=== PATIENT | female | born 1970 ===

== ENCOUNTER 2024-04-21 14:59 | Emergency (ER) | payer OTHER, SELFPAY ==
[2024-04-21] VITALS (8 sets, daily range): BP systolic 91–109; BP diastolic 51–63; PULSE 89–109; RESP 18–20; TEMP 37.3–39.5; O2SAT 93–98; BMI 26.4
--- NOTE | ~2024-04-21 | US_ITS ---
EXAMINATION: US ABDOMEN LIMITED CLINICAL INFORMATION: Pericholecystic fluid on CT. COMPARISON: CT abdomen pelvis 04/21/2024. TECHNIQUE: Real-time imaging of the right upper quadrant abdominal viscera. FINDINGS: Gallbladder: The gallbladder is partially contracted. A single 1.5 cm x 0.67 x 1.1 cm echogenic gallstone is identified in the gallbladder lumen with posterior acoustic shadowing. Gallbladder wall thickness measures 3 mm in width. No pericholecystic fluid collections identified. A negative sonographic Kim sign is reported by the certified surgical technologist. The common bile duct measures 4 mm diameter. Incidentally visualized liver demonstrates no gross intrahepatic biliary duct dilatation. The liver is not comprehensively evaluated. US/US abdomen limited IMPRESSION: *Cholelithiasis. Single 1.5 cm gallstone identified within the lumen of the gallbladder. The gallbladder is contracted. No pericholecystic fluid collections. No inflammatory changes or abnormal mural thickening of the gallbladder identified. *Normal caliber of the common bile duct. Electronically signed by: Spencer St MD 04/21/2024 11:24 PM [facility]
--- NOTE | ~2024-04-21 | CT_ITS ---
EXAMINATION: CT ABDOMEN AND PELVIS WITH CONTRAST CLINICAL INFORMATION: Right flank pain COMPARISON: None available. TECHNIQUE: Multidetector volumetric images were obtained from the superior aspect of the liver through the pubic symphysis following administration 85 mL of Omnipaque 350 intravenous contrast. Sagittal and coronal reformatted images were obtained on the technologist's workstation. Oral contrast: No This CT examination was performed using dose optimization techniques as appropriate, variously including the following: *Automated exposure control *Adjustment of mA and/or kV according to patient size (this includes techniques or standardized protocols for targeted exams where dose is matched to indication/reason for exam; i.e. extremities or head) *Use of iterative reconstruction technique DLP: 421 mGy-cm FINDINGS: LUNG BASES: Right lower lobe consolidation with surrounding groundglass opacity concerning for inflammation/infection. ABDOMINAL AND PELVIC WALL: Unremarkable. LIVER AND BILIARY TREE: Multiple subcentimeter hypoattenuating liver lesions are too small to characterize. GALLBLADDER: The gallbladder is contracted with mild pericholecystic fluid. No gallstones. PANCREAS: Unremarkable. SPLEEN: Unremarkable. ADRENAL GLANDS: Unremarkable. KIDNEYS AND URETERS: Benign-appearing right renal cyst. Punctate right renal stones, no obstructing stone or hydronephrosis. GASTROINTESTINAL TRACT: Unremarkable. Appendix is within normal limits. VASCULAR: Unremarkable LYMPH NODES/PERITONEUM: No lymphadenopathy. FREE FLUID: None. BLADDER: Unremarkable. PELVIC VISCERA: Intrauterine device is seen within the uterus. OSSEOUS STRUCTURES: Unremarkable. CT/CT abdomen pelvis w IV con IMPRESSION: * Right lower lobe consolidation with surrounding groundglass opacity concerning for inflammation/infection. * Gallbladder is contracted with mild pericholecystic fluid. No gallstones. Recommend right upper quadrant ultrasound for further evaluation. * Punctate right renal stones, no obstructing stone or hydronephrosis. Electronically signed by: Mindy Ye MD 04/21/2024 06:10 PM [facility]
--- NOTE | ~2024-04-21 | XR_ITS ---
EXAMINATION: XR CHEST CLINICAL INFORMATION: Sepsis COMPARISON: None available. TECHNIQUE: 2 views of the chest were obtained. FINDINGS: The cardiac silhouette is normal. There is mild diffuse bronchial wall thickening. There are no areas of consolidation. There are no pleural effusions or pneumothoraces. The bones and soft tissues are unremarkable for the patient's age. XR/XR chest 2V IMPRESSION: Bronchial wall thickening may be infectious and/or inflammatory in etiology. Electronically signed by: Moon Ochoa MD 04/21/2024 04:58 PM EST RP
--- NOTE | 2024-04-21 15:17 | ED_ITS ---
HPI - Fever General Chief Complaint: Fever Stated Complaint: fever-covid+ Time Seen by Provider: 04/21/24 15:52 Source: patient Mode of arrival: ambulatory Limitations: no limitations History of Present Illness HPI Narrative: This is an otherwise healthy 53-year-old woman with a past medical history of bunionectomy who presents for evaluation of fever. The patient states that she returned from a cruise to the [facility] on Thursday April 11, 2024. She states that she began to feel generally unwell the following day. She reports associated headache, fever as high as 101? F and myalgias. She states no associated nausea, vomiting and diarrhea. She states that her symptoms continued and would not resolving. She reports that she was seen had an urgent care and was diagnosed with COVID-19 on Wednesday April 17, 2024. She states that she was also found to have a urinary tract infection. She reports noting increased urinary frequency/urgency without dysuria. She states mild flank pain as well. She states no trauma. She states no abdominal pain. She states no cough, chest pain or difficulty breathing. Related Data Previous Rx's ?Medication ?Instructions ?Recorded cefpodoxime 200 mg tablet 200 mg PO BID 7 days #14 tabs 04/21/24 doxycycline hyclate 100 mg capsule 100 mg PO BID 7 days #14 caps 04/21/24 Allergies Allergy/AdvReac Type Severity Reaction Status Date / Time No Known Allergies Allergy Verified 04/21/24 15:19 Review of Systems 2 Review of Systems: ROS as per [facility] Social History Social History Alcohol intake: former Smoked in Last 30 Days: No Use of substances other than those prescribed or required for medical reasons: No Advance Directives: No Advance Directives Information Provided: No Physical Exam 2 Vital Signs: Vital Signs: Last Vital Signs Temp 99.2 F 04/22/24 00:17 Pulse 83 04/22/24 00:17 Resp 16 04/22/24 00:17 BP 92/57 L 04/22/24 00:17 Pulse Ox 96 04/22/24 00:17 O2 Del Method Room Air 04/22/24 00:17 BMI result Body Mass Index 26.4 Gen: NAD, AOx3 HEENT: NCAT, EOMI, normal conjunctiva CV: Tachycardic rate, regular rhythm Pulm: CTAB, no increased work of breathing GI: Soft, NTND, no rebound, guarding or rigidity Neuro: Grossly non focal Course Course Course Narrative: This is a Rapid Medical Examination (RME) performed by Ismael Auguste PA-C in triage. Full HPI, ROS, assessment and treatment plan per primary provider in the Main ED. 53 yo female here for eval of fevers not responsive to tylenol and motrin. seen for this at in [facility] - diagnosed with covid. she was also prescribed bactrim for UTI which she is taking as prescribed. reports continued dark colored urine, mild right flank pain, and fevers >103F. + febrile and tachy w/ known infection - meets sepsis criteria. patient brought back to main ED bed. Plan: labs, lactic, UA, blood cultures. tylenol given. Medications Administered Discontinued Medications Generic Name Dose Route Start Last Admin Trade Name Freq PRN Reason Stop Dose Admin Acetaminophen 975 mg 04/21/24 15:19 04/21/24 15:22 Acetaminophen 325 Mg Tablet PO 04/21/24 15:20 975 mg ONCE ONE Administration Ceftriaxone Sodium 1 gm 04/21/24 15:54 04/21/24 16:06 Ceftriaxone Sodium 1 Gm Vial IVPUSH 04/21/24 15:55 1 gm ONCE ONE Administration Lactated Ringer's 1,905.09 mls @ 1,905.09 mls/hr 04/21/24 15:52 04/21/24 16:52 Lr 30 ml/kg infuse over 1 hr (1905.09 ml) 04/21/24 16:51 Infused IV Infusion .Q1H ONE Doxycycline Hyclate 100 mg/ 250 mls @ 166.67 mls/hr 04/21/24 18:27 04/21/24 20:13 Sodium Chloride IV 04/21/24 19:56 Infused ONCE ONE Infusion Sodium Chloride 500 mls @ 999 mls/hr 04/21/24 18:45 04/21/24 19:25 Ns IV 04/21/24 19:15 Infused .Q31M PRABHA Infusion Ibuprofen 600 mg 04/21/24 19:44 04/21/24 19:58 Ibuprofen 600 Mg Tablet PO 04/21/24 19:45 600 mg ONCE ONE Administration Iohexol 100 ml 04/21/24 17:03 04/21/24 17:03 Iohexol 350 Mg/Ml 100 Ml Infus..Btl IV 04/21/24 17:04 85 ml ONCE ONE Administration Medical Decision Making Medical Decision Making [facility] Narrative: I received sign-out from my colleague Dr. Ureña -patient's ultrasound shows a 1.5 cm gallstone, no acute cholecystitis. Patient does not have significant abdominal pain at this time. Discussed with the patient to have a follow-up with general surgery, if the patient starts causing symptoms, she may need a cholecystectomy. At this time, patient has no symptoms related to the gallstone -CT scan of the abdomen showed right lower lobe consolidation, likely pneumonia. Patient will be going home with antibiotics. Patient known to be COVID 19 positive Patient's oxygen saturation constantly 96% on room air even with exertion. Admission/Observation Consideration of admission/observation: Escalation of care including admission/observation considered Lab Data [facility] Lab Attestation statement: I reviewed the patient's lab results. 04/21/24 15:37 04/21/24 15:37 Labs: Lab Results 04/21/24 04/21/24 04/21/24 Range/Units 15:36 15:37 16:26 WBC 9.5 (4.8-10.8) X10*3/uL RBC 3.31 L (4.20-5.50) X10*6/uL Hgb 10.1 L (12.0-16.0) g/dl Hct 29.3 L (37.0-47.0) % MCV 88.5 (80.0-98.0) fL MCH 30.5 (27.0-33.0) pg MCHC 34.5 (31.0-35.0) g/dl RDW 12.8 (11.0-16.0) % Plt Count 275 (160-400) X10*3/uL MPV 10.7 (9.4-12.3) fL Immature Gran % (Auto) 1.1 H (0.0-0.4) % Neut % (Auto) 74.7 H (45-73) % Lymph % (Auto) 16.1 L (20-40) % [place] % (Auto) 7.7 (2-11) % Eos % (Auto) 0.0 (0-4) % Baso % (Auto) 0.4 (0-2) % Lymph # (Auto) 1.5 (1.2-4.9) X10*3/uL [place] # (Auto) 0.7 (0.1-1.2) X10*3/uL Eos # (Auto) 0.0 (0.0-0.4) X10*3/uL Baso # (Auto) 0.0 (0.0-0.2) X10*3/uL Abs Immat Gran (auto) 0.10 H (0.00-0.03) X10*3/uL Absolute Neuts (auto) 7.1 (2.0-8.3) x10*3/uL Absolute Nucleated RBC 0.000 (0.0-0.012) X10*3/uL Nucleated RBC % (auto) 0.0 (0.0-0.2) /100WBC PT 14.5 H (10.9-12.4) SEC INR 1.2 H (0.9-1.1) APTT 26.7 (26.0-36.8) SEC Sodium 133 L (135-145) mmol/L Potassium 3.8 (3.3-5.1) mmol/L Chloride 98 (96-108) mmol/L Carbon Dioxide 23 (22-29) mmol/L Anion Gap 16 (12-20) BUN 12 (9-16) mg/dL Creatinine 0.99 (0.5-1.4) mg/dL Estim Creat Clear Calc 56.1 Estimated GFR 59 Random Glucose 104 (60-115) mg/dL Lactic Acid 1.1 (0.5-2.0) mmol/L Calcium 9.1 (8.4-10.2) mg/dL Magnesium 2.0 (1.6-2.6) mg/dL Total Bilirubin 2.0 H (0.0-1.0) mg/dL AST 45 H (5-31) U/L ALT 21 (0-31) U/L Alkaline Phosphatase 90 (39-117) U/L Total Protein 8.5 H (6.5-8.0) g/dL Albumin 3.8 (3.5-5.0) g/dL Lipase 104 H (8-78) U/L Urine Color Dark Yellow Urine Appearance Clear Urine pH 6.0 (5.0-9.0) Ur Specific [place] 1.015 (1.005-1.025) Urine Protein 100 (2+) H (Neg-Trace) mg/dL Urine Glucose (UA) Negative (Negative) mg/dL Urine Ketones Negative (Negative) mg/dL Urine Blood Trace H (Negative) Urine Nitrite Negative (Negative) Ur Leukocyte Esterase Trace H (Negative) Urine RBC 6-10 H (0-2) /HPF Urine WBC 6-10 H (0-5) /HPF Ur Squamous Epith Cells 0-2 (0-2) /HPF Urine Bacteria None Seen (None Seen) Hyaline Casts 0-2 (0-2) /LPF Independent Interpretation I performed an independent interpretation of an: EKG Interpretation: I independently reviewed and interpreted the patient's EKG and chest x-ray. EKG demonstrates sinus rhythm at 92 beats per minute, [place] 138, QRS 90, QTC 457, no STEMI. Radiology Impression Discussion of test interpretation with radiology: I have reviewed the radiologist's reading. Radiologist Impression: Gallbladder: The gallbladder is partially contracted. A single 1.5 cm x 0.67 x 1.1 cm echogenic gallstone is identified in the gallbladder lumen with posterior acoustic shadowing. Gallbladder wall thickness measures 3 mm in width. No pericholecystic fluid collections identified. A negative sonographic Kim sign is reported by the cytogenetics technologist. The common bile duct measures 4 mm diameter. Incidentally visualized liver demonstrates no gross intrahepatic biliary duct dilatation. The liver is not comprehensively evaluated. Critical Care Time Critical Care Time Critical Care Time: Yes Total Critical Care Time: 60 Attestation: I have personally provided critical care time. Time includes review of lab data, radiology results, discussion with consultants, and monitoring for potential decompensation. Intervention performed as documented. Discharge Plan Discharge Clinical Impression: Pneumonia Patient Disposition: Home, Self-Care Additional Instructions: You were seen and evaluated in the emergency room. You are found to have pneumonia and started on antibiotics. Please discontinue ear previous antibiotic prescription. You are given a prescription for two new antibiotics. Please take at the same time twice a day. Your next dose of antibiotics she will be taken in the morning of April 22, 2024. Please take 600 mg of ibuprofen with food and water every 6 hours as needed for pain/fever. You can also take 1000 mg Tylenol every 8 hours as needed for additional pain/fever relief. Please follow-up with your primary care doctor in the next 1 week. Return to the emergency room with any new concerns. Prescriptions: New cefpodoxime 200 mg tablet 200 mg PO BID 7 Days Qty: 14 0RF Rx Instructions: must administer with a meal/food doxycycline hyclate 100 mg capsule 100 mg PO BID 7 Days Qty: 14 0RF Print Language: Faroese
[2024-04-21] MEDS: Acetaminophen 325 MG TABLET 975 MG PO (15:22)
[2024-04-21 15:42] LABS: MANUAL DIFF FLAG NO
[2024-04-21 15:43] LABS: Basophils Percent Auto 0.4 % (0-2); Hematocrit 29.3 % (37.0-47.0); Hemoglobin 10.1 g/dl (12.0-16.0); Imm Gran Pct Auto 1.1 % (0.0-0.4); Lymphocytes Absolute Auto 1.5 X10*3/uL (1.2-4.9); Lymphocytes Percent Auto 16.1 % (20-40); Mean Corpuscular HGB Conc 34.5 g/dl (31.0-35.0); Mean Corpuscular Hemoglobin 30.5 pg (27.0-33.0); Mean Corpuscular Volume 88.5 fL (80.0-98.0); Mean Platelet Volume 10.7 fL (9.4-12.3); Monocytes Absolute Auto 0.7 X10*3/uL (0.1-1.2); Monocytes Percent Auto 7.7 % (2-11); Neutrophils Absolute Auto 7.1 x10*3/uL (2.0-8.3); Neutrophils Percent Auto 74.7 % (45-73); Platelet Count 275 X10*3/uL (160-400); Red Blood Count 3.31 X10*6/uL (4.20-5.50); Red Cell Distribution Width 12.8 % (11.0-16.0); White Blood Count 9.5 X10*3/uL (4.8-10.8)
--- NOTE | 2024-04-21 15:52 | ED_ITS ---
HPI - General Adult General Chief complaint: Fever Stated complaint: fever-covid+ Time Seen by Provider: 04/21/24 15:52 History of Present Illness HPI narrative: This is an otherwise healthy 53-year-old woman with a past medical history of bunionectomy who presents for evaluation of fever. The patient states that she returned from a cruise to the [facility] on Thursday April 11, 2024. She states that she began to feel generally unwell the following day. She reports associated headache, fever as high as 101? F and myalgias. She states no associated nausea, vomiting and diarrhea. She states that her symptoms continued and were not resolving. She reports that she was seen had an urgent care and was diagnosed with COVID-19 on Wednesday April 17, 2024. She states that she was also found to have a urinary tract infection. She reports noting increased urinary frequency/urgency without dysuria. She states mild flank pain as well. She states no trauma. She states no abdominal pain. She states no cough, chest pain or difficulty breathing. Related Data Previous Rx's ?Medication ?Instructions ?Recorded cefpodoxime 200 mg tablet 200 mg PO BID 7 days #14 tabs 04/21/24 doxycycline hyclate 100 mg capsule 100 mg PO BID 7 days #14 caps 04/21/24 ibuprofen 600 mg tablet 600 mg PO Q8H PRN fever or pain 04/22/24 #30 tabs Allergies Allergy/AdvReac Type Severity Reaction Status Date / Time No Known Allergies Allergy Verified 04/21/24 15:19 [facility] Social History Social History Alcohol intake: former Physical Exam ED Vital Signs: Vital Signs - 24 hr 04/21/24 15:16 04/21/24 16:51 04/21/24 16:52 Temperature 103.1 F H 99.9 F 99.2 F Pulse Rate 109 H 93 Respiratory Rate 20 18 Blood Pressure 107/63 94/54 L Pulse Oximetry 96 98 Oxygen Delivery Method Room Air Room Air 04/21/24 16:53 04/21/24 17:15 04/21/24 19:35 Temperature 99.9 F 99.8 F 99.4 F Pulse Rate 95 90 89 Respiratory Rate 18 18 18 Blood Pressure 98/57 L 92/54 L 92/54 L Pulse Oximetry 95 95 97 Oxygen Delivery Method Room Air Room Air Room Air 04/21/24 19:44 04/21/24 22:27 04/22/24 00:17 Temperature 99.5 F 99.2 F Pulse Rate 94 83 Respiratory Rate 18 16 Blood Pressure 109/60 91/51 L 92/57 L Pulse Oximetry 93 96 Oxygen Delivery Method Room Air Room Air BMI result Body Mass Index 26.4 Gen: NAD, AOx3 HEENT: NCAT, EOMI, normal conjunctiva CV: RRR Pulm: CTAB, no increased work of breathing GI: Soft, NTND, no rebound, guarding or rigidity, no CVAT Neuro: Grossly non focal Medications Administered Discontinued Medications Generic Name Dose Route Start Last Admin Trade Name Freq PRN Reason Stop Dose Admin Acetaminophen 975 mg 04/21/24 15:19 04/21/24 15:22 Acetaminophen 325 Mg Tablet PO 04/21/24 15:20 975 mg ONCE ONE Administration Acetaminophen 975 mg 04/22/24 02:07 04/22/24 02:19 Acetaminophen 325 Mg Tablet PO 04/22/24 02:08 975 mg ONCE ONE Administration Ceftriaxone Sodium 1 gm 04/21/24 15:54 04/21/24 16:06 Ceftriaxone Sodium 1 Gm Vial IVPUSH 04/21/24 15:55 1 gm ONCE ONE Administration Lactated Ringer's 1,905.09 mls @ 1,905.09 mls/hr 04/21/24 15:52 04/21/24 16:52 Lr 30 ml/kg infuse over 1 hr (1905.09 ml) 04/21/24 16:51 Infused IV Infusion .Q1H ONE Doxycycline Hyclate 100 mg/ 250 mls @ 166.67 mls/hr 04/21/24 18:27 04/21/24 20:13 Sodium Chloride IV 04/21/24 19:56 Infused ONCE ONE Infusion Sodium Chloride 500 mls @ 999 mls/hr 04/21/24 18:45 04/21/24 19:25 Ns IV 04/21/24 19:15 Infused .Q31M PRABHA Infusion Ibuprofen 600 mg 04/21/24 19:44 04/21/24 19:58 Ibuprofen 600 Mg Tablet PO 04/21/24 19:45 600 mg ONCE ONE Administration Iohexol 100 ml 04/21/24 17:03 04/21/24 17:03 Iohexol 350 Mg/Ml 100 Ml Infus..Btl IV 04/21/24 17:04 85 ml ONCE ONE Administration Medical Decision Making Medical Decision Making [facility] Narrative: Differential diagnosis includes, but is not limited to sirs, sepsis, pyelonephritis, urinary tract infection, pneumonia, viral syndrome. Patient was treated supportively here in the emergency room with IV fluids and antibiotics. I reviewed labs, CT imaging and chest x-ray as below. I suspect the etiology of patient's infection is pneumonia and no she did as such. Given his CT imaging findings of mild pericholecystic fluid and recommendation for ultrasound. We will obtain ultrasound for further evaluation, but abdominal exam is reassuring there is low clinical suspicion for any acute intra-abdominal pathology. Care is transitioned to the oncoming physician with disposition pending ultrasound, which I anticipate if unremarkable patient is likely amenable for outpatient treatment of community-acquired pneumonia. Critical Care Time: A total of 60 minutes spent in direct patient care with coordinating critical resuscitation, procedures, reviewing records, discussing with consultants, reviewing labs, and/or managing patient. Admission/Observation Consideration of admission/observation: Escalation of care including admission/observation considered Lab Data [facility] Lab Attestation statement: I reviewed the patient's lab results. I reviewed interpreted the patient's labs, which demonstrates stable anemia, no leukocytosis or leukopenia, lactic acid within normal limits, metabolic panel reassuring. Urinalysis unremarkable. 04/21/24 15:37 04/21/24 15:37 Labs: Lab Results 04/21/24 04/21/24 04/21/24 Range/Units 15:36 15:37 16:26 WBC 9.5 (4.8-10.8) X10*3/uL RBC 3.31 L (4.20-5.50) X10*6/uL Hgb 10.1 L (12.0-16.0) g/dl Hct 29.3 L (37.0-47.0) % MCV 88.5 (80.0-98.0) fL MCH 30.5 (27.0-33.0) pg MCHC 34.5 (31.0-35.0) g/dl RDW 12.8 (11.0-16.0) % Plt Count 275 (160-400) X10*3/uL MPV 10.7 (9.4-12.3) fL Immature Gran % (Auto) 1.1 H (0.0-0.4) % Neut % (Auto) 74.7 H (45-73) % Lymph % (Auto) 16.1 L (20-40) % [place] % (Auto) 7.7 (2-11) % Eos % (Auto) 0.0 (0-4) % Baso % (Auto) 0.4 (0-2) % Lymph # (Auto) 1.5 (1.2-4.9) X10*3/uL [place] # (Auto) 0.7 (0.1-1.2) X10*3/uL Eos # (Auto) 0.0 (0.0-0.4) X10*3/uL Baso # (Auto) 0.0 (0.0-0.2) X10*3/uL Abs Immat Gran (auto) 0.10 H (0.00-0.03) X10*3/uL Absolute Neuts (auto) 7.1 (2.0-8.3) x10*3/uL Absolute Nucleated RBC 0.000 (0.0-0.012) X10*3/uL Nucleated RBC % (auto) 0.0 (0.0-0.2) /100WBC PT 14.5 H (10.9-12.4) SEC INR 1.2 H (0.9-1.1) APTT 26.7 (26.0-36.8) SEC Sodium 133 L (135-145) mmol/L Potassium 3.8 (3.3-5.1) mmol/L Chloride 98 (96-108) mmol/L Carbon Dioxide 23 (22-29) mmol/L Anion Gap 16 (12-20) BUN 12 (9-16) mg/dL Creatinine 0.99 (0.5-1.4) mg/dL Estim Creat Clear Calc 56.1 Estimated GFR 59 Random Glucose 104 (60-115) mg/dL Lactic Acid 1.1 (0.5-2.0) mmol/L Calcium 9.1 (8.4-10.2) mg/dL Magnesium 2.0 (1.6-2.6) mg/dL Total Bilirubin 2.0 H (0.0-1.0) mg/dL AST 45 H (5-31) U/L ALT 21 (0-31) U/L Alkaline Phosphatase 90 (39-117) U/L Total Protein 8.5 H (6.5-8.0) g/dL Albumin 3.8 (3.5-5.0) g/dL Lipase 104 H (8-78) U/L Urine Color Dark Yellow Urine Appearance Clear Urine pH 6.0 (5.0-9.0) Ur Specific Bessie 1.015 (1.005-1.025) Urine Protein 100 (2+) H (Neg-Trace) mg/dL Urine Glucose (UA) Negative (Negative) mg/dL Urine Ketones Negative (Negative) mg/dL Urine Blood Trace H (Negative) Urine Nitrite Negative (Negative) Ur Leukocyte Esterase Trace H (Negative) Urine RBC 6-10 H (0-2) /HPF Urine WBC 6-10 H (0-5) /HPF Ur Squamous Epith Cells 0-2 (0-2) /HPF Urine Bacteria None Seen (None Seen) Hyaline Casts 0-2 (0-2) /LPF Independent Interpretation I performed an independent interpretation of an: EKG and Plain X-Ray Interpretation: I independently reviewed and interpreted the patient's EKG, which demonstrates sinus rhythm at 92 beats per minute, [place] 138, QRS 90, QTC 457, no STEMI. I independently reviewed and interpreted the patient's chest x-ray, which demonstrates no focal consolidation, pleural effusion or pneumothorax Radiology Impression Discussion of test interpretation with radiology: I have reviewed the radiologist's reading. Radiologist Impression: XR/XR chest 2V IMPRESSION: Bronchial wall thickening may be infectious and/or inflammatory in etiology. Electronically signed by: Moon Ochoa MD 04/21/2024 04:58 PM [facility] Dictated By: Moon Ochoa MD Signed By: <Electronically signed by Moon Ochoa MD in OV> 04/21/[address]/CT abdomen pelvis w IV con IMPRESSION: * Right lower lobe consolidation with surrounding groundglass opacity concerning for inflammation/infection. * Gallbladder is contracted with mild pericholecystic fluid. No gallstones. Recommend right upper quadrant ultrasound for further evaluation. * Punctate right renal stones, no obstructing stone or hydronephrosis. Electronically signed by: Mindy Ye MD 04/21/2024 06:10 PM [facility] Dictated By: Mindy Ye MD Signed By: <Electronically signed by Mindy Ye MD in OV> 04/21/24 181 Discharge Plan Discharge Clinical Impression: Pneumonia, Cholelithiasis Patient Disposition: Home, Self-Care Additional Instructions: You were seen and evaluated in the emergency room. You are found to have pneumonia and started on antibiotics. Please discontinue ear previous antibiotic prescription. You are given a prescription for two new antibiotics. Please take at the same time twice a day. Your next dose of antibiotics she will be taken in the morning of April 22, 2024. Please take 600 mg of ibuprofen with food and water every 6 hours as needed for pain/fever. You can also take 1000 mg Tylenol every 8 hours as needed for additional pain/fever relief. Please follow-up with your primary care doctor in the next 1 week. Return to the emergency room with any new concerns. Prescriptions: New cefpodoxime 200 mg tablet 200 mg PO BID 7 Days Qty: 14 0RF Rx Instructions: must administer with a meal/food doxycycline hyclate 100 mg capsule 100 mg PO BID 7 Days Qty: 14 0RF ibuprofen 600 mg tablet 600 mg PO Q8H PRN (Reason: fever or pain) Qty: 30 0RF Referrals: All Armstrong MD [Physician] - 04/26/24 Stand Alone Forms: Work/School Release Interventions: ED Discharge Assessment Last Done: 04/22/24 02:18 Discharge Date/Time: 04/22/24 02:22 Print Language: Hungarian
[2024-04-21] MEDS: LACTATED RINGERS 1905.09 ML IV (16:00)
[2024-04-21 16:02] LABS: Lactic Acid 1.1 mmol/L (0.5-2.0)
--- NOTE | 2024-04-21 16:02 | ECG_ITS ---
Test Reason : tachycardia Blood Pressure : / mmHG Vent. Rate : 092 BPM Atrial Rate : 092 BPM P-R Int : 138 ms QRS Dur : 090 ms QT Int : 370 ms P-R-T Axes : 066 011 041 degrees QTc Int : 457 ms Normal sinus rhythm Normal ECG No previous ECGs available Referred By: Godfrey Ureña Electronically Signed By:JOHN HERNANDEZ MD
[2024-04-21 16:04] LABS: Alanine Aminotransferase 21 U/L (0-31); Albumin Level 3.8 g/dL (3.5-5.0); Alkaline Phosphatase 90 U/L (39-117); Anion Gap 16 (12-20); Aspartate Amino Transferase 45 U/L (5-31); Blood Urea Nitrogen 12 mg/dL (9-16); Calcium 9.1 mg/dL (8.4-10.2); Carbon Dioxide 23 mmol/L (22-29); Chloride 98 mmol/L (96-108); Creatinine Clr Calc Pharmacy 56.1; Estimated Glomerular Filt Rate 59; Glucose Random 104 mg/dL (60-115); Lipase 104 U/L (8-78); Potassium 3.8 mmol/L (3.3-5.1); Sodium 133 mmol/L (135-145); Total Protein 8.5 g/dL (6.5-8.0)
[2024-04-21] MEDS: cefTRIAXone sodium 1 GM VIAL IVPUSH (16:06)
--- NOTE | 2024-04-21 16:34 | PC.NURSE ---
Patient went on a cruise a few weeks ago and believes that is when she caught covid. has not felt well for about 2 weeks. Reports palpitations, fatigue, weakness, fevers, and cough.
[2024-04-21 16:40] LABS: INTERNATIONAL NORM RATIO 1.2 (0.9-1.1); Prothrombin Time 14.5 SEC (10.9-12.4)
[2024-04-21 16:42] LABS: Partial Thromboplastin Time 26.7 SEC (26.0-36.8)
[2024-04-21 16:55] LABS: Appearance Urine Clear; Color Urine Dark Yellow; Glucose Urine UA Negative (Negative); Leukocyte Esterase Urine Trace (Negative); Nitrite Urine Negative (Negative); Specific Gravity - Urine 1.015 (1.005-1.025); UMIC TRIGGER UACC YES; Urine Blood Trace (Negative); Urine Ketones Negative (Negative); Urine Protein 100 (2+) mg/dL (Neg-Trace)
[2024-04-21] MEDS: iohexoL 350 MG/ML 100 ML INFUS..BTL IV (17:03)
[2024-04-21 17:05] LABS: Bacteria Urine None Seen (None Seen); Hyaline Casts Urine 0-2 /LPF (0-2); Squamous Epithelial Cell Urine 0-2 /HPF (0-2); UACC Culture Trigger YES
--- NOTE | 2024-04-21 17:15 | PC.NURSE ---
Patient reports feeling better. oob ambulating to bathroom with steady gait denies dizziness. provider aware of soft BP`s after fluids, no new orders at this time
[2024-04-21] MEDS: Doxycycline Hyclate 100 MG in 0.9 % Sodium Chloride 250 ML 166.67 MG IV (18:43)
[2024-04-21] MEDS: 0.9 % Sodium Chloride 500 ML 999 ML IV (18:46)
--- NOTE | 2024-04-21 19:45 | PC.NURSE ---
assumed care of pt 1914. ivf infused 1924. bp as documented. initial bp documented sbp 90s, bp cuff found to be incorrectly placed on arm. bp cuff fixed and bp 109/60 LUE and 109/56 RUE. MD aware. pt reports 8/10 back pain, states ibuprofen helps with pain. MD aware. pt resting comfortably at this time. family at bedside. call oliveira within reach.
[2024-04-21] MEDS: Ibuprofen 600 MG TABLET PO (19:58)
[2024-04-22 00:17] VITALS: BP 92/57; PULSE 83; RESP 16; TEMP 37.3; O2SAT 96
--- NOTE | 2024-04-22 00:19 | PC.NURSE ---
MD made aware of bp. pt resting comfortably.
[2024-04-22 02:18] VITALS: BP 107/45; PULSE 101; RESP 18; TEMP 38.2; O2SAT 96
[2024-04-22] MEDS: Acetaminophen 325 MG TABLET 975 MG PO (02:19)
== END 2024-04-22 02:22 | disposition home or self-care (01) ==
PROVIDERS: Physician Assistant Medical; Emergency Provider Emergency Medicine
DX: J18.9 Pneumonia, unspecified organism (principal); K80.20 Calculus of gallbladder without cholecystitis without obstruction; R50.9 Fever, unspecified; R79.1 Abnormal coagulation profile
CPT/HCPCS: 36415; 71046; 74177; 76705; 80053; 81001; 83605; 83690; 83735; 85025; 85610; 85730; 87040; 87086; 93005; 96361; 96365; 96366; 96375; 99285; J0696; J7120; Q9967

== ENCOUNTER → 2024-04-21 16:02 | Outpatient (BNV) | payer OTHER, SELFPAY | PROVIDERS: Emergency Provider Emergency Medicine; Visit Provider Internal Medicine Cardiovascular Disease | DX: R00.0 Tachycardia, unspecified (principal) | CPT/HCPCS: 93010 ==

== ENCOUNTER 2024-05-25 13:27 | Outpatient (AMB) | payer OTHER, SELFPAY ==
--- NOTE | 2024-05-25 13:32 | MHC.OFFVIS ---
Vital Signs 05/25/24 13:39 Height 5 ft 1 in Weight 139 lb BMI 26.3 BP 119/67 Blood Pressure Location Rt brachial Position Sitting Pulse 79 Intake Visit Reasons: cholelithiasis Intake Note: Patient here after ER visit on 04-21-2024. Patient c/o: diagnosed w/ walking pneumonia. Denies abdominal pain. Communications Writer Required: No Accompanied by: Self / Same As Patient Allergies No Known Allergies Allergy (Verified 05/25/24 13:37) HPI Comments Details: Patient presents for evaluation of asymptomatic cholelithiasis. She was in the ER for unrelated reasons had ultrasound of the abdomen was demonstrated cholelithiasis. She herself has no abdominal issues or complaints. No fatty food intolerance. Tolerates her diet. Regular bowel habits. Never been jaundiced before. [facility] Medical History (Updated 05/25/24 @ 13:40 by Marco Grimm MD) Asymptomatic cholelithiasis Social History Alcohol intake: former Physical Exam GI Other: Abdomen is soft, benign Assessment & Plan Assessment & Plan (1) Asymptomatic cholelithiasis: Code(s): K80.20 - Calculus of gallbladder without cholecystitis without obstruction Category: Surgical Plan At present, patient will be treated conservatively regarding her asymptomatic cholelithiasis. Should she develop any GI issues or complaints, she has been instructed to contact the office or will otherwise follow-up p.r.n.. All questions answered. Medications: Discontinued cefpodoxime must administer with a meal/food Discontinued Reason: Patient Completed Course 200 mg PO BID 7 days 14 tabs 0RF doxycycline hyclate Discontinued Reason: Patient Completed Course 100 mg PO BID 7 days 14 caps 0RF Coding Level of Care Code New Pt Level 4 (68393) Diagnoses Asymptomatic cholelithiasis K80.20
[2024-05-25 13:39] VITALS: BP 119/67; PULSE 79; BMI 26.3
--- OUTSIDE RECORDS SUMMARY | 2024-05-26 21:40 | XMS_ITS | Data Portability ---
Author Organization JONATHON Juarez [facility] [address] Address [address] [place] [address] Assessment No assessment recorded. Plan of Treatment Reminders Order Date Submit Date Provider Last Modified By Organization Details Last Modified Time Details Appointments None recorded. Lab None recorded. Referral None recorded. Procedures None recorded. Surgeries None recorded. Imaging None recorded. Medication Orders prednisone 20 mg tablet 2022 023 [id number], [address] [place], [address], 3 11:05:50 hydroxyzine HCl 25 mg tablet 2022 023 [id number], [address] [place], [address], 3 11:05:50 Patient TargetsNo targets recorded. Patient Instructions Encounter Date Encounter Id Patient Instructions Last Modified By Organization Details Last Modified Time 01/19/2023 [id number] allergic reactio n: care instructions Not available 01/19/2023 11:05:48 OVERVIEW Being stung by a bee, wasp, hornet, or yellow jacket can be both painful and scary. Some people have serious or even life-threatening reactions to stings, which requires quick treatment. This article will review the most common types of stings, reactions to stings, and recommended treatments. INSECT TYPES The insects that cause the most serious sting reactions include the following: ? Honey bees and bumble bees. ? Yellow jackets, yellow hornets, white-faced hornets, and paper wasps. ? Fire ants, harvester ants, bulldog ants, and lazaro jumper ants. Fire ants are discussed separately. INSECT STING REACTION After being stung, you should remove the stinger from your skin as soon as possible to prevent any more venom from being released into the skin. However, all of the venom is released from the stinger within the first few seconds, so this is only helpful if done quickly. You do not need to use any special technique (eg, flicking or scraping) to get the stinger out. Most people who are stung by an insect will develop a local reaction (an area of swelling and redness). Some people will also develop a severe allergic reaction called anaphylaxis. Local reaction ? Immediately after being stung, most people have: ? Sharp or burning pain ? Skin swelling and redness (picture 1) The swelling and pain usually improve within a few hours. Approximately 10 percent of people develop severe redness and swelling after a sting. This is called a large local reaction. The area may become large (4 inches [10 cm] or more) over 1 to 2 days and then slowly resolve over 5 to 10 days. Having a large local reaction does not mean that you will have a severe allergic reaction (anaphylaxis) if you are stung again. Only about 5 to 10 percent of people who have a large local reaction will have anaphylaxis if stung in the future. If you have a large local reaction, talk to your clinician or nurse to determine what steps, if any, you need to take if you are stung again. Local reaction treatment ? To reduce pain and swelling after an insect sting, you can try the following: ? Apply a cold compress (a cold, damp washcloth or damp cloth wrapped around an ice pack) to the area. ? If you develop itching, you can take a nonprescription antihistamine, such as cetirizine (Zyrtec). ? A pain reliever, such as ibuprofen (sold as Advil, Motrin, and store brands), may help reduce pain. If nonprescription treatments do not help or your pain or swelling gets worse, call your clinician or nurse. Allergic reaction ? Insect stings cause allergic reactions in some people. Symptoms of an allergic reaction usually develop quickly and include: ? Skin symptoms, such as hives, redness, or swelling of skin away from the area that was stung (for example, the face or lips may swell after being stung on the hand) ? Belly cramps, nausea, vomiting, or diarrhea ? Hoarse voice, shortness of breath, and difficulty breathing ? Lightheadedness, dizziness, passing out Severe allergic reactions are called anaphylaxis. You can have an anaphylactic reaction the first time you are stung. Severe allergic reaction treatment ? Severe allergic reactions are a medical emergency that can lead to if not treated quickly. If you develop any symptoms of anaphylaxis, you need to get emergency care as soon as possible. When possible, ask someone else to call for emergency care (call 911 in the [place]). Do not drive yourself to the hospital, and do not ask someone else to drive you. Calling 911 is safer than driving for two reasons: ? You can get treatment from the paramedics as soon as the ambulance arrives. If you drive to the hospital, you cannot get treatment until you arrive in the emergency department. ? Dangerous complications may occur (eg, you may stop breathing) on the way to the hospital, which would increase the chances of having a motor vehicle accident. (See Patient education: Anaphylaxis treatment and prevention of recurrences (Beyond the Basics) .) The first and most important treatment for a severe allergic reaction is a shot of epinephrine. Epinephrine is available by prescription in prefilled syringes called epinephrine auto-injectors. Instructions for using epinephrine are available in a separate article. AM I ALLERGIC TO STINGS? If you had any symptoms of an allergic reaction or anaphylaxis after being stung, you should make an appointment to see an learning technologies specialist. At this visit, the cake mixer will try to determine if you are allergic to stings. If you are allergic to stings, the cake mixer will teach you how and when to use an epinephrine autoinjector. He or she will also help you decide if you need allergy shots (called immunotherapy) to reduce your risk of anaphylaxis in the future. Allergy testing ? Testing can be done to determine if you are allergic to insect stings. Blood and skin tests are available, and both are needed in some cases. (See Diagnosis of Hymenoptera venom allergy .) If allergy testing shows that you are allergic to insect stings, there is a good chance that you will have a serious allergic reaction (anaphylaxis) if you are stung again. Allergy shots can greatly reduce the risk of anaphylaxis. Allergy shots (immunotherapy) ? Allergy shots, also called venom immunotherapy, can reduce your chance of having a serious or life-threatening reaction to a sting. When you are stung by an insect, the stinger injects venom into your skin, which causes the allergic reaction. Allergy shots usually contain purified venom. The first few allergy shots contain very small amounts of venom, and the amount is gradually increased until you can tolerate the amount of venom in two or more stings without having allergic symptoms. Allergy shots are often recommended if you had: ? A serious allergic reaction (anaphylaxis) after being stung AND ? Allergy testing that shows that you are allergic to bee, wasp, yellow jacket, or hornet venom Allergy shots are usually given in an cake mixer's office one to three times per week for a few months, and then once every 4 to 12 weeks for at least three years. Some people continue to get allergy shots for three to five years, while other people get them for longer. Most experts recommend that you continue getting allergy shots indefinitely if: ? You had a life-threatening reaction to a past sting ? You have a reaction to the allergy shot, since this is a sign that you are very sensitive to the venom ? You are so fearful of having a severe allergic reaction that you cannot enjoy normal outdoor activities As a result of immunotherapy, your risk of having a serious allergic reaction after a sting becomes much lower. You should still carry an epinephrine autoinjector. Epinephrine ? Epinephrine, sometimes called adrenaline, is a medicine that can treat the symptoms of a serious allergic reaction. Epinephrine is available in prefilled syringes so that you can give yourself a shot if needed. If you had anaphylaxis after an insect sting in the past, you should always carry at least one epinephrine autoinjector (even in the winter). However, one or even two injections of epinephrine may not be enough to stop a life-threatening reaction. This is why it is important to talk to an cake mixer about allergy shots if you have had a serious allergic reaction after a sting. You should also seek emergency medical care after using an epinephrine autoinjector because the symptoms of allergic reactions sometimes come back after initially improving. AVOIDING STINGS Bees and wasps that are away from their nest are not aggressive and only sting when threatened (after being hit, stepped on, or swatted). Wearing brightly colored clothing or perfume does not increase the risk of being stung. Wearing white or light-colored clothing may reduce the chance of being attacked if you are near a nest. When eating outside, keep food and drinks covered, and wipe up food and drink spills quickly. Watch for yellow jackets inside drink containers. Do not walk outside without shoes. If you find a wasp nest near your home, do not try to get rid of the nest yourself. Instead, call a pest control professional. If you have a venom allergy, avoid activities that may disturb a nest, such as mowing the lawn or pruning a hedge. If a stinging insect is near, slowly back away and do not flail your arms. If you are being swarmed or stung, cover your mouth and nose with your hand and run inside a building or an enclosed vehicle. Not available 01/19/2023 11:32:01 Uncertain etiolo gy Will Rx prednisone x 3 d Zyrtec daily x 2 weeks Topical steroid x 1 week Eliminate any new foods, meds, soaps, detergents, hygeine products etc Follow up as needed for no improvement or worsening symptoms Discussed concerning red flags with patient and reasons to follow up in the Emergency Department urgently. [email or web address] Not available 01/19/2023 11:05:02 Reason for Referral None Reported. Problems No Known Problems Procedures Surgical History Date Name Laterality Status Provider Name and Address Organization Details Recorded Time excision of bunion completed Aliza HOLT - [facility] 01/19/2023 10:27:48 Imaging Results None recorded. Procedure Notes None recorded. Medical Equipment None Reported. Allergies No known drug allergies Medications Name Sig Start Date Stop Date Status Note LastModified by Organization Details LastModified Time prednisone 20 mg tablet Take 2 tablets every day by oral route in the morning for 4 days. 2022 active Not Available Not Available Not Avai lable hydroxyzine HCl 25 mg tablet Take 1 tablet 3 times a day by oral route as needed for 7 days. 2022 active Not Available Not Available Not Avai lable Flowflex COVID-19 Antigen Home Test kit use as directed on package FOR AT home CoVID testing NEEDED 01/19 completed Not Available Not Available Not Available Vitals Date Recorded Body height Body mass index (BMI) Body weight Body temperature Respiratory rate Heart rate Oxygen saturation Oxygen saturation in Arterial blood by Pulse oximetry Systolic blood pressure Diastolic blood pressure Provider Name and Address Organization Details Last Updated DateTime 3 154.94 cm 26.8 kg/m2 35864.1 2 g 97.8 [degF] 18 /min 63 /min 100 % 100 % 115 mm[Hg] 78 mm[Hg] Aliza HOLT - [facility] 3 10:27:02 Social History Question Answer Notes LastModified by Organizat ion Details LastModified Time Tobacco Smoking Status Never Smoker Aliza reinoso [place] - [facility] 01/19/2023 10:27:32 What Is Your Level Of Alcohol Consumption? Occasional Information not available 01/19/2023 Do You Use Any Illicit Or Recreational Drugs? No Information not available 01/19/2023 Have You Recently Traveled Abroad? No Information not available 01/19/2023 Do You Or Have You Ever Used Any Other Forms Of Tobacco Or Nicotine? No Information not available 01/19/2023 Sex: Unknown Functional Status None recorded. Mental Status None recorded. Family History Relationship Description Onset Age of this Age Resolved Age Notes LastModified by Organization Details LastModified Time Father No current problems or disability Not available 01/19 10:27:20 Mother No current problems or disability Not available 01/19 10:27:20 Medical History No medical history recorded. Gynecological History Statement/Question Response Is there any chance of ? No LMP Unknown Obstetrics History GPAL:G 0 P 0 0 0 0 Immunizations Vaccine Type Date Status Note Provider Nam e and Address Organization Details Recorded Time COVID-19, mRNA, LNP-S, PF, 30 mcg/0.3 mL dose 10/06/2020 completed Aliza reinoso, PA - [facility] 01/19/2023 10:27:12 COVID-19, mRNA, LNP-S, PF, 30 mcg/0.3 mL dose 10/28/2020 completed Aliza reinoso PA - [facility] 01/19/2023 10:27:12 Past Encounters Encounter ID Performer Location Encounter Start Date Encounter Closed Date Diagnosis/Indication Diagnosis SNOMED-CT Code Diagnosis ICD10 Code [id number] Jesús Mcgraw [place] [address] [facility] [address] [facility] [place] [id number] 01/19/2023 08:47:26 01/19/2023 11:08:31 Insect bite reaction 972319958 T63.481A Puncture w ound of left hand [id number] S61.432A Health Concerns Section Related Observation LastModified by Organization Detai ls LastModified Time None Recorded Concern Status LastModified by Organization Details LastModified Time None Recorded Advance Directives Directive None Recorded Payers Encounter Date Sequence Insurance Name Policy Number Policy Tineo Covered Member ID Tineo Member ID Guarantor Name 01/19/2023 1 [facility] [id number] [employer] [id number] [employer] Notes Date Note Type Note Provider Name and Address Organization Details Recorded Time 01/19/2023 text/html Animal BiteReported bypatient.Onset of exposure:3 days ago; 52 year old female comes after getting bitten by insect /Bee 4 days ago . left hand is still red and swollen , no spreading erythema , no swollen lips or throat closing. no other rash on body. denies fever or known allergic reaction. Type of Exposure:other insect Wound Type:Puncture Location:left; hands Associated Symptoms:no wound drainage;redness;s welling Vaccine Status:No tetanus vaccine within past 5 years Jesús Mcgraw NP [address] [place], [address], [place] - [facility] 01/19/2023 11:32:07 OBGyn Episode No OBEpisode recorded.
== END 2024-05-25 13:40 | disposition home or self-care (01) ==
PROVIDERS: Visit Provider Surgery
DX: K80.20 Calculus of gallbladder without cholecystitis without obstruction (principal)
CPT/HCPCS: 99204